=== PATIENT | male | born 1990 | race Two or more races ===

== ENCOUNTER 2017-03-10 13:10 | Emergency (ER) | payer OTHER ==
[~2017-03-10] VITALS: Ht 185.4 cm; Wt 104.3 kg
[~2017-03-10 13:10] MED LIST: IBUPROFEN800 MG ORAL; NKM
[2017-03-10] MEDS ORDERED: Morphine Sulfate 2mg/ml Inj IVP ONE (13:45)
[2017-03-10] MEDS ORDERED: Famotidine 20 MG/ 2ML VIAL IVP ONE (13:45)
[2017-03-10 14:02] VITALS: BP 134/100
[2017-03-10 14:16] LABS: BASOPHILS % (AUTO) 0.8 % (0.0-2.0); EOSINOPHILS % (AUTO) 0.4 % (0.0-3.0); LYMPHOCYTES % (AUTO) 49.8 % (20.0-45.0); MEAN CORPUSCULAR HEMOGLOBIN 31.7 PG (27.0-31.0); MEAN CORPUSCULAR VOLUME 93 FL (80-99); MEAN PLATELET VOLUME 7.8 FL (6.5-10.1); MONOCYTES % (AUTO) 10.5 % (1.0-10.0); NEUTROPHILS % (AUTO) 38.4 % (45.0-75.0); PLATELET COUNT 206 K/UL (150-450); RED BLOOD COUNT 5.15 M/UL (4.70-6.10); RED CELL DISTRIBUTION WIDTH 11.8 % (11.6-14.8); WHITE BLOOD COUNT 5.8 K/UL (4.8-10.8)
[2017-03-10 14:21] LABS: APPEARANCE,URINE CLEAR; KETONES,URINE NEGATIVE (NEGATIVE); LEUKOCYTE ESTERASE ,URINE NEGATIVE (NEGATIVE); NITRITE,URINE NEGATIVE (NEGATIVE); PH,URINE 5 (4.5-8.0); PROTEIN,URINE 2+ (NEGATIVE); UROBILINOGEN,URINE NORMAL MG/DL (0.0-1.0)
[2017-03-10 14:34] LABS: RBC,URINE 0-2 /HPF (0 - 0); WBC,URINE 0-2 /HPF (0 - 0)
[2017-03-10 14:35] LABS: BACTERIA,URINE OCCASIONAL /HPF; SQUAMOUS EPITHELIAL CELL,UR OCCASIONAL /LPF (NONE/OCC)
[2017-03-10 14:37] LABS: ALANINE AMINOTRANSFERASE 78 U/L (3-41); ALBUMIN/GLOBULIN RATIO 1.3 (1.0-2.7); ANION GAP 16 (5-15); ASPARTATE AMINO TRANSFERASE 40 U/L (5-40); CALCIUM 9.4 mg/dL (8.6-10.2); CARBON DIOXIDE 24 mEQ/L (20-30); CHLORIDE 100 mEQ/L (98-107); CREATININE 1.2 mg/dL (0.7-1.2); GLOMERULAR FILTRATION RATE > 60 mL/min (>60); HEMOLYSIS 2; LIPASE 22 U/L (< 60); SODIUM 140 mEQ/L (135-145); TOTAL PROTEIN 7.5 g/dL (6.6-8.7)
--- NOTE | 2017-03-10 15:24 | Emergency Room Report ---
History of Present Illness General Chief Complaint: Nausea, Vomiting, and Diarrhea Source: Patient Present Illness HPI Patient presents with vomiting abdominal cramps and diarrhea. It's been going on for 4 days. He also states his had the same but she started to be better. No fever. Diarrhea is watery. Able to keep down liquids, but anything he takes in comes out immediately as diarrhea. No blood. No melena. Pain 10/10 crampy diffuse and slightly more L side. Took Nyquil, which did not help. Preceding they ate seafood. No URI, cough, dysuria, bleeding, joint pain. There is some achiness. The patient is at a history of hepatitis C. Allergies: Coded Allergies: No Known Allergies (Unverified , 09/19/16) Patient History Past Medical History: see triage record Social History: Denies: smoking Social History Narrative Reviewed Nursing Documentation: PMH: Agreed, PSxH: Agreed Nursing Documentation-PMH Past Medical History: No Stated History Review of Systems All Other Systems: negative except mentioned in HPI Physical Exam Vital Signs Date Time Temp Pulse Resp B/P Pulse Ox O2 Delivery O2 Flow Rate FiO2 03/10/17 13:19 97.9 83 18 134/100 95 Room Air Sp02 EP Interpretation: reviewed, normal General Appearance: well appearing, no apparent distress, GCS 15 Head: normocephalic Eyes: bilateral eye PERRL, bilateral eye anticteric, bilateral eye normal inspection ENT: moist mucus membranes Neck: supple Respiratory: lungs clear, normal breath sounds Cardiovascular #1: regular rate, rhythm Cardiovascular #2: 2+ radial (R) Gastrointestinal: normal inspection, no mass, non-distended, no guarding, no rebound, abnormal bowel sounds - hyperactive, tenderness - diffuse Musculoskeletal: back normal, gait/station normal, normal range of motion Neurologic: alert, oriented x3, grossly normal Psychiatric: mood/affect normal Skin: normal inspection, warm/dry Medical Decision Making Diagnostic Impression: Primary Impression: Viral gastroenteritis ER Course Patient presents with NVD. DDx: food poisoning, gastroenteritis, diverticulitis , GI bleed. History c/w infectious etiology as also had. Evaluation with labs. Treatment with IV hydration and small dose of analgesia. Labs with normal WBC. Improved with treatment. Patient stable for outpatient observation and treatment. Laboratory Tests Test 03/10/17 13:50 White Blood Count 5.8 K/UL (4.8-10.8) Red Blood Count 5.15 M/UL (4.70-6.10) Hemoglobin 16.3 G/DL (14.2-18.0) Hematocrit 48.1 % (42.0-52.0) Mean Corpuscular Volume 93 FL (80-99) Mean Corpuscular Hemoglobin 31.7 PG (27.0-31.0) H Mean Corpuscular Hemoglobin Concent 34.0 G/DL (32.0-36.0) Red Cell Distribution Width 11.8 % (11.6-14.8) Platelet Count 206 K/UL (150-450) Mean Platelet Volume 7.8 FL (6.5-10.1) Neutrophils (%) (Auto) 38.4 % (45.0-75.0) L Lymphocytes (%) (Auto) 49.8 % (20.0-45.0) H Monocytes (%) (Auto) 10.5 % (1.0-10.0) H Eosinophils (%) (Auto) 0.4 % (0.0-3.0) Basophils (%) (Auto) 0.8 % (0.0-2.0) Urine Color Yellow Urine Appearance Clear Urine pH 5 (4.5-8.0) Urine Specific [place] 1.025 (1.005-1.035) Urine Protein 2+ (NEGATIVE) H Urine Glucose (UA) Negative (NEGATIVE) Urine Ketones Negative (NEGATIVE) Urine Occult Blood Negative (NEGATIVE) Urine Nitrite Negative (NEGATIVE) Urine Bilirubin Negative (NEGATIVE) Urine Urobilinogen Normal MG/DL (0.0-1.0) Urine Leukocyte Esterase Negative (NEGATIVE) Urine RBC 0-2 /HPF (0 - 0) H Urine WBC 0-2 /HPF (0 - 0) Urine Squamous Epithelial Cells Occasional /LPF Urine Bacteria Occasional /HPF (NONE) Sodium Level 140 mEQ/L (135-145) Potassium Level 4.0 mEQ/L (3.4-4.9) Chloride Level 100 mEQ/L (98-107) Carbon Dioxide Level 24 mEQ/L (20-30) Anion Gap 16 (5-15) H Blood Urea Nitrogen 22 mg/dL (7-23) Creatinine 1.2 mg/dL (0.7-1.2) Estimate Glomerular Filtration Rate > 60 mL/min (>60) Glucose Level 87 mg/dL (74-106) Calcium Level 9.4 mg/dL (8.6-10.2) Total Bilirubin 0.5 mg/dL (0.0-1.2) Aspartate Amino Transferase (AST) 40 U/L (5-40) Alanine Aminotransferase (ALT) 78 U/L (3-41) H Alkaline Phosphatase 69 U/L (40-129) Total Protein 7.5 g/dL (6.6-8.7) Albumin 4.3 g/dL (3.5-5.2) Globulin 3.2 g/dL Albumin/Globulin Ratio 1.3 (1.0-2.7) Lipase 22 U/L (< 60) Last Vital Signs Date Time Temp Pulse Resp B/P Pulse Ox O2 Delivery O2 Flow Rate FiO2 03/10/17 15:28 97.9 18 136/68 99 Room Air 03/10/17 13:19 83 Status: improved Disposition: HOME, SELF-CARE Condition: Improved Scripts Ondansetron Odt* (ZOFRAN ODT*) 4 Mg Tab.rapdis 4 MG ORAL Q8HR Y for Nausea & Vomiting, #6 TAB 0 Refills Prov: Jaspal Diaz M.D. 03/10/17 Diphenoxylate HCl/Atropine (Lomotil Tablet) 1 Each Tablet 1 EACH PO BID Y for diarrhea or cramps, #6 TAB Prov: Jaspal Diaz M.D. 03/10/17 Referrals: [facility],REFERR[facility] (PCP) Jaspal Diaz M.D. March 10, 2017 15:24
[2017-03-10] MEDS ORDERED: LOMOTIL TABLET1 EAC1 PO (15:26)
[2017-03-10] MEDS ORDERED: ZOFRAN ODT4 MG ORAL (15:26)
[2017-03-10 15:28] VITALS: BP 136/68
== END 2017-03-10 15:38 | disposition home or self-care (01) ==
LOC: EMR 14:23
DX: A08.4 Viral intestinal infection, unspecified (principal); Z86.19 Personal history of other infectious and parasitic diseases
CPT/HCPCS: 36415; 80053; 81003; 83690; 85025; 96360; 96374; 96375; 99284; J2270; J2405; S0028

== ENCOUNTER 2017-08-11 10:08 | Emergency (ER) | payer OTHER ==
[~2017-08-11] VITALS: Ht 185.4 cm; Wt 115.7 kg
[~2017-08-11 10:08] MED LIST changes: +LOMOTIL TABLET1 EAC1 PO; +ZOFRAN ODT4 MG ORAL
[2017-08-11 10:22] VITALS: BP 118/77
[2017-08-11] MEDS ORDERED: Cyclobenzaprine 10mg Tab ORAL ONE (10:45)
[2017-08-11] MEDS ORDERED: Ketorolac 30mg Inj IM ONE (10:45)
[2017-08-11] MEDS ORDERED: IBUPROFEN600 MG ORAL (11:17)
[2017-08-11] MEDS ORDERED: CYCLOBENZAPRINE10 MG ORAL (11:17)
[2017-08-11 11:20] VITALS: BP 118/77
--- NOTE | 2017-08-11 11:34 | Emergency Room Report ---
History of Present Illness General Chief Complaint: Back Pain-No Injury Source: Patient Present Illness HPI 27-year-old male presents ED complaining of back pain times one week. States pain is sharp, noted to his upper back, 8/10, nonradiating. Worse with twisting and bending. Denies trauma. Denies chest pain or shortness of breath. Denies fevers chills. 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 No other aggravating relieving factors. Denies any other associated symptoms Allergies: Coded Allergies: No Known Allergies (Unverified , 09/19/16) Patient History Past Medical History: none Past Surgical History: none Pertinent Family History: none Social History: Denies: smoking, alcohol use, drug use Immunizations: UTD Reviewed Nursing Documentation: PMH: Agreed, PSxH: Agreed Nursing Documentation-PMH Past Medical History: No History, Except For Review of Systems All Other Systems: negative except mentioned in HPI Physical Exam Vital Signs Date Time Temp Pulse Resp B/P (MAP) Pulse Ox O2 Delivery O2 Flow Rate FiO2 08/11/17 10:13 97.9 90 18 118/77 96 Room Air Sp02 EP Interpretation: reviewed, normal General Appearance: no apparent distress, alert, GCS 15, non-toxic Head: normocephalic Eyes: bilateral eye normal inspection, bilateral eye PERRL ENT: normal ENT inspection Neck: normal inspection Respiratory: chest non-tender, lungs clear, normal breath sounds, speaking full sentences Cardiovascular #1: regular rate, rhythm, no edema Gastrointestinal: normal inspection Rectal: deferred Genitourinary: no CVA tenderness, no vertebral tenderness Musculoskeletal: tender - mid thoracic paraspinal tenderness Neurologic: alert, oriented x3, responsive, motor strength/tone normal, sensory intact, speech normal Psychiatric: normal inspection Skin: normal inspection Lymphatic: normal inspection Medical Decision Making Diagnostic Impression: Primary Impression: Back pain Qualified Codes: M54.6 - Pain in thoracic spine ER Course Hospital Course 27-year-old male presents ED complaining of mid back pain. No evidence of trauma Differential diagnoses include: pyelonephritis, kidney stone, muscle strain, Lspine fracture Clinical course Patient placed on stretcher. After initial history, physical exam reveals a young male in no acute distress. There is no vertebral body tenderness. There is some paraspinal pain in the midthoracic region bilaterally. No rib tenderness. No scapular tenderness. No flank pain Likely muscular pain. I ordered toradol and valium for pain. Upon reassessment patient states pain has improved. Diagnosis - back pain Stable and discharged to home with prescription for Motrin, Flexeril. Followup with PMD. Return to ED if symptoms recur or worsen Last Vital Signs Date Time Temp Pulse Resp B/P (MAP) Pulse Ox O2 Delivery O2 Flow Rate FiO2 08/11/17 11:20 97.9 84 16 118/77 99 Room Air Status: improved Disposition: HOME, SELF-CARE Condition: Stable Scripts Cyclobenzaprine Hcl* (FLEXERIL*) 10 Mg Tablet 10 MG ORAL TID Y for Muscle Spasm, #20 TAB Prov: CHLOE SANTAMARIA M.D. 08/11/17 Ibuprofen* (MOTRIN*) 600 Mg Tablet 600 MG ORAL Q8H Y for For Pain, #30 TAB 0 Refills Prov: CHLOE SANTAMARIA M.D. 08/11/17 Departure Forms: Return to Work Return to Work Date: Aug 12, 2017 Work Restrictions: No Heavy Lifting Patient Instructions: Back Pain, Adult CHLOE SANTAMARIA M.D. Aug 11, 2017 11:34
== END 2017-08-11 11:24 | disposition home or self-care (01) ==
LOC: EMR 10:22
DX: M54.6 Pain in thoracic spine (principal)
CPT/HCPCS: 96372; 99284; J1885